=== PATIENT | female | born 1975 | race Caucasian/White ===

== ENCOUNTER 2019-07-21 10:03 | Inpatient (IN) | payer OTHER ==
[~2019-07-21] VITALS: Ht 170.2 cm; Wt 76.2 kg
[2019-08-04] MEDS ORDERED: ZETIA10 MG PO (11:56)
== END 2019-08-19 21:43 | disposition home or self-care (01) | DRG 330 ==
LOC: SURH 08-09 06:20 → O/R 08-09 06:20 → SURG 08-09 12:45 → SURH 08-09 22:08
PROVIDERS: ADMIT Colon & Rectal Surgery
PROC: 07BB4ZX Excision of Mesenteric Lymphatic, Percutaneous Endoscopic Approach, Diagnostic (ICD-10-PCS; 2019-08-09)
PROC: 0DTF4ZZ Resection of Right Large Intestine, Percutaneous Endoscopic Approach (ICD-10-PCS; principal; 2019-08-09 17:30)
PROC: 3E0436Z Introduction of Nutritional Substance into Central Vein, Percutaneous Approach (ICD-10-PCS; 2019-08-12)
PROC: 02HV33Z Insertion of Infusion Device into Superior Vena Cava, Percutaneous Approach (ICD-10-PCS; 2019-08-12)
PROC: 0DH67UZ Insertion of Feeding Device into Stomach, Via Natural or Artificial Opening (ICD-10-PCS; 2019-08-14)
PROC: 3E0G76Z Introduction of Nutritional Substance into Upper GI, Via Natural or Artificial Opening (ICD-10-PCS; 2019-08-14)
PROC: BW21Y0Z Computerized Tomography (CT Scan) of Abdomen and Pelvis using Other Contrast, Unenhanced and Enhanced (ICD-10-PCS; 2019-08-17)
DX: D12.2 Benign neoplasm of ascending colon (principal); K92.1 Melena; K91.31 Postprocedural partial intestinal obstruction; E44.0 Moderate protein-calorie malnutrition; D62 Acute posthemorrhagic anemia; R59.0 Localized enlarged lymph nodes; K63.89 Other specified diseases of intestine

== ENCOUNTER → 2020-08-10 08:00 | Outpatient (CLI) | payer OTHER ==
[~2020-08-10 08:00] MED LIST: ZETIA10 MG PO
== END | disposition home or self-care (01) ==
LOC: LAB 08:00 → ADM 13:15 → AMB-ENDOS 08-17 13:15 → EDSTATUS 08-17 13:15
PROVIDERS: ATTEND Colon & Rectal Surgery
DX: U07.1 COVID-19 (principal); D12.2 Benign neoplasm of ascending colon; C18.2 Malignant neoplasm of ascending colon; Z86.010 Personal history of colon polyps; K92.1 Melena

== ENCOUNTER 2020-10-05 07:40 | Day surgery (SDC) | payer OTHER | END 2020-10-05 14:20 | disposition home or self-care (01) | LOC: AMB-ENDOS 07:40 | PROVIDERS: ATTEND Colon & Rectal Surgery | DX: D12.8 Benign neoplasm of rectum (principal); K64.0 First degree hemorrhoids; Z20.828 Contact with and (suspected) exposure to other viral communicable diseases ==

== ENCOUNTER 2020-11-21 06:39 | Day surgery (SDC) | payer OTHER | END 2020-11-21 16:20 | disposition home or self-care (01) | LOC: CIR.AMB 06:39 → O/R 11:30 → EDBD 11:30 → EDSTATUS 11:30 → CIR.AMB 11:30 | PROVIDERS: ATTEND Colon & Rectal Surgery | DX: K43.0 Incisional hernia with obstruction, without gangrene (principal); Z20.822 Contact with and (suspected) exposure to COVID-19 ==